=== PATIENT | female | born 2000 | race African-American/Black ===

== ENCOUNTER 2024-07-18 16:29 | Emergency (ER) | payer BC ==
[2024-07-18] MEDS ORDERED: Dexamethasone 10 MG/ML VIAL ONE (18:02)
[2024-07-18] MEDS ORDERED: Acetaminophen 500 MG TAB ONE (18:02)
[2024-07-18] MEDS ORDERED: diphenhydrAMINE 50 MG/ML VIAL ONE (18:03)
[2024-07-18] MEDS ORDERED: Metoclopramide HCl 10 MG (2 mL) VIAL ONE (18:03)
== END 2024-07-18 19:54 | disposition home or self-care (01) ==
LOC: ERS 16:29
DX: R51.9 Headache, unspecified (principal); R29.700 NIHSS score 0
CPT/HCPCS: 70450; 96374; 96375; J1100; J1200; J2765